=== PATIENT | male | born 1960 | race Caucasian/White ===

== ENCOUNTER 2018-07-15 16:32 | Observation (INO) | payer OTHER ==
[2018-07-15] MEDS ORDERED: IOPAMIDOL (ISOVUE-300) 100 ML BTL ONE (16:44)
[2018-07-15] MEDS ORDERED: BUPIVACAINE 0.25% 30 ML SDV ONE (18:15)
[2018-07-15] MEDS ORDERED: LR 1,000 ML IV ONE (18:15)
[2018-07-15] MEDS ORDERED: EPINEPHrine 1 MG/ML INJ ONE (18:15)
--- NOTE | 2018-07-15 18:20 | PDGENHP ---
History and Physical - Chief Complaint abdominal pain - History of Present Illness Otherwise healthy 58yo M. Pain began last evening, worsened today. Saw Dr Johnson (standing in for his regular PCP Mary). Ordered workup. Ct shows appendicitis. Describes awaking at 0400, tried to shower but the pain persisted. Went to PCP, had workup. In Pre-op describes RLQ pain with rebound, no nausea or vomiting, no fevers or chills. History Information - Allergies/Home Medication List Allergies/Adverse Reactions: Penicillins Allergy (Severe, Verified 01/25/12 17:40) ibuprofen [From Advil] Allergy (Verified 01/25/12 17:40) CATS Allergy (Uncoded 01/25/12 18:24) Home Medications: ESOMEPRAZOLE MAG TRIHYDRATE [NEXIUM] 40 mg PO HS 01/25/12 [Last Taken 01/24/12] Fluticasone/Salmeter 100/50Mcg [Advair 100/50 (RX)] 1 inh IH HS 01/25/12 [Last Taken 01/24/12] Pharmacy Completed 01/25/12 01/25/12 [Last Taken 01/25/12] I have personally reviewed and updated: medical history, social history, surgical history Review of Systems Review of Systems: ROS: 10pt was reviewed & negative except for what was stated in HPI & below Physical Exam Physical Exam: Constitutional: no apparent distress, appears nourished, not in pain Eyes: PERRL, anicteric sclera, EOMI Ears, Nose, Mouth, Throat: moist mucous membranes, hearing normal, ears appear normal, no oral mucosal ulcers Cardiovascular: regular rate and rhythym, no murmur, rub, or gallop, No edema Respiratory: no respiratory distress, no rales or rhonchi, clear to auscultation Gastrointestinal: normoactive bowel sounds, other (TTP in RLQ, no rebound or guarding ) Genitourinary: no bladder fullness, no bladder tenderness Skin: warm, normal color, no rashes or abrasions, no fluctuance, no induration, No mottled Musculoskeletal: full muscle strength, no muscle tenderness, normal joint ROM, no joint effusions Psychiatric: interacting appropriately, not anxious, not encephalopathic, thought process linear Lymph, Heme, Immunologic: no cervical LAD, no supraclavicular LAD Lab Data & Imaging Review Visualized and Interpreted imaging results: Yes Interpretation: CT: acute appendicitis Assessment & Plan Plan: 58yo M c acute appendicitis - to OR for lap appy - RBA discussed. Anticipate one night hospital stay.
[2018-07-15] MEDS ORDERED: MIDAZOLAM 2 MG/2 ML VIAL ONE (18:56)
[2018-07-15] MEDS ORDERED: MIDAZOLAM 2 MG/2 ML VIAL IVP ONE (19:04)
--- NOTE | 2018-07-15 19:04 | PDANEPAE ---
ANE History of Present Illness Laparoscopic appendectomy ANE Past Medical History - Pulmonary History Hx Asthma/Reactive Airway Disease: Yes Hx Oxygen in Use at Home: No Hx Sleep Apnea: No - GI History GERD: mild ANE Review of Systems Review of systems is: negative Review of Systems: - Exercise capacity Exercise capacity: >=4 METS ANE Patient History - Allergies Allergies/Adverse Reactions: Penicillins Allergy (Severe, Verified 01/25/12 17:40) ibuprofen [From Advil] Allergy (Verified 01/25/12 17:40) CATS Allergy (Uncoded 01/25/12 18:24) - Home Medications Home medications: home medication list seen and reviewed Home Medications: ESOMEPRAZOLE MAG TRIHYDRATE [NEXIUM] 40 mg PO HS 01/25/12 [Last Taken 01/24/12] Fluticasone/Salmeter 100/50Mcg [Advair 100/50 (RX)] 1 inh IH HS 01/25/12 [Last Taken 01/24/12] Pharmacy Completed 01/25/12 01/25/12 [Last Taken 01/25/12] - NPO status NPO Since - Liquids (Date): 07/15/18 NPO Since - Liquids (Time): 15:00 NPO Since - Solids (Date): 07/15/18 NPO Since - Solids (Time): 11:00 - Anes Hx Anes Hx: no prior problems - Family Anes Hx Family Anes Hx: none ANE Labs/Vital Signs - Vital Signs Vital Signs: reviewed preoperatively; see RN documention for details Blood Pressure: 144/103 Heart Rate: 90 Respiratory Rate: 16 O2 Sat (%): 97 Height: 177.8 cm Weight: 81.647 kg ANE Physical Exam - Airway Neck exam: FROM Mallampati Score: Class 1 Mouth exam: normal dental/mouth exam - Pulmonary Pulmonary: no respiratory distress - Cardiovascular Cardiovascular: regular rate and rhythym - ASA Status ASA Status: II, E
[2018-07-15] MEDS ORDERED: PROPOFOL 200 MG/20 ML VIAL ONE (19:07)
[2018-07-15] MEDS ORDERED: LIDOCAINE 2% 100 MG/5 ML SYR ONE (19:07)
[2018-07-15] MEDS ORDERED: ONDANSETRON 4 MG/2 ML VIAL ONE (19:07)
[2018-07-15] MEDS ORDERED: ROCURONIUM 50 MG/5 ML VIAL ONE (19:07)
[2018-07-15] MEDS ORDERED: SUGAMMADEX SODIUM 200 MG/2 ML VIAL IVP ONE (19:07)
[2018-07-15] MEDS ORDERED: DEXAMETHASONE 4 MG/ML VIAL ONE (19:07)
[2018-07-15] MEDS ORDERED: fentaNYL 250 MCG/5 ML INJ ONE (19:07)
[2018-07-15] MEDS ORDERED: ACETAMINOPHEN 500 MG TAB PO PRN (19:41)
[2018-07-15] MEDS ORDERED: NALOXONE HCL 0.4 MG/ML INJ IVP PRN (19:41)
[2018-07-15] MEDS ORDERED: MEPERIDINE 25 MG/0.5 ML AMP IVP PRN (19:41)
[2018-07-15] MEDS ORDERED: oxyCODONE IR 5 MG TAB PO PRN ×2 (19:41→19:59)
[2018-07-15] MEDS ORDERED: DEXAMETHASONE 4 MG/ML VIAL IVP PRN (19:41)
[2018-07-15] MEDS ORDERED: HYDROCODONE/APAP 5/325 TAB PO PRN (19:41)
[2018-07-15] MEDS ORDERED: ONDANSETRON 4 MG/2 ML VIAL IVP PRN ×2 (19:41→19:59)
[2018-07-15] MEDS ORDERED: PROMETHAZINE HCL 25 MG/ML INJ IVP PRN (19:41)
[2018-07-15] MEDS ORDERED: HYDROmorphONE/DILAUDID 2 MG/ML INJ IVP PRN (19:41)
[2018-07-15] MEDS ORDERED: fentaNYL 100 MCG/2 ML INJ IVP PRN (19:41)
--- NOTE | 2018-07-15 19:41 | POSTANESTH ---
Post Anesthetic Evaluation Cardiovascular Status: Normal, Stable, Similar to Pre-Op Cond Respiratory Status: Normal, Stable, Similar to Pre-op Cond. Level of Consciousness/Mental Status: Can Participate in Eval, Mildly Sleepy, Arousable Pain Control: Adequate, Prn Tx Ordered Nausea/Vomiting Control: Adequate, Prn Tx Ordered Complications Possibly Related to Anesthesia: None Noted
[2018-07-15] MEDS ORDERED: KETOROLAC 30 MG/1 ML SDV ONE (19:52)
[2018-07-15] MEDS ORDERED: HYDROmorphONE/DILAUDID 1 MG/ML INJ IVP PRN (19:59)
--- NOTE | 2018-07-15 19:59 | POSTOPPROG ---
Post Op Note Date of Operation: 07/15/18 Surgeon: Babar Cuba Anesthesiologist: Raymon Anesthesia: GET(General Endotracheal) Pre-op Diagnosis: appendicitis Post-op Diagnosis: same Procedure: laparoscopic appendectomy Findings: acute, non perforated Inf/Abcess present in the surg proc area at time of surgery?: No EBL: Minimal Specimen(s): appendix
[2018-07-15] MEDS ORDERED: D5W 1/2 NS W/ 20 KCl/L 1,000 ML IV SCH (20:00)
--- NOTE | 2018-07-15 21:12 | GOP ---
DATE OF OPERATION: 07/15/2018 SURGEON: Babar Cuba MD CARROTING MACHINE OFFBEARER: None. ANESTHESIA: General endotracheal. ANESTHESIOLOGIST: Dr. Be Chambers. PREOPERATIVE DIAGNOSIS: .Appendicitis. POSTOPERATIVE DIAGNOSIS: Appendicitis. PROCEDURE PERFORMED: Laparoscopic appendectomy. FINDINGS: Acute, indurated, nonperforated appendicitis. SPECIMENS: Appendix. ESTIMATED BLOOD LOSS: 5 cc. DESCRIPTION OF PROCEDURE: The patient was greeted in the preoperative suite. Once again, risks, bhavik efits, and alternatives were discussed. Consent was signed. He was then brought back to the operati ve suite, placed on the OR table in supine position. After all anesthesia machines including SCDs we re on and functioning, [facility] time-out was performed. After successful induction of general anesthesia, the patient's abdomen was prepped and draped in typical sterile fashion. I en tered the abdomen via an infraumbilical cutdown through his previous scar. Through this, I inserted the Veress needle. I achieved pneumoperitoneum to 15 mmHg CO2, which was well tolerated by the patie nt. Through this, I then inserted a 12 mm Visiport under direct visualization. Once successfully in the abdomen, he had no adhesions from his previous surgery. I successfully inserted 2 additional 5 mm trocars, 1 in the suprapubic, 1 in the left lower quadrant, both under direct visualization. I id entified the appendix by tracing the taeniae inferiorly. It did appear indurated but not perforated. I began my dissection by creating a window at the base of the appendix. Once a window was successf ully created, I amputated the appendix from the cecal base using a single fire of the Endo ANISHA blue l oad stapler. In the same fashion, taking the mesoappendix after successful skeletonization with a wh ite load, the mesoappendix was not hemostatic. I had to use multiple 5 mm hemoclips, after which it was noted to be hemostatic. I irrigated the right lower quadrant, assured hemostasis. I irrigated th e right upper quadrant as well as the pelvis, noting clear effluent in the suction canister. I then once again inspected my staple lines, which were intact and hemostatic. I evacuated my pneumoperiton eum after placing local anesthesia into the port sites. My infraumbilical site was closed with an 0 Vicryl stitch, noting excellent fascial reapproximation. The skin was then closed with Monocryl over which Dermabond was placed. The patient was then extubated in the operative suite and taken to PACU in satisfactory condition. DRAINS: None. COUNTS: All counts were reported as correct x2. /[id number]/MODL
[2018-07-16] MEDS: ACETAMINOPHEN 325 MG TAB PO PRN ×2 (00:12→07:43)
[2018-07-16] MEDS: PANTOPRAZOLE SODIUM 40 MG TAB PO SCH ×2 (07:45→07:51)
--- NOTE | 2018-07-16 07:58 | SOAPPROG ---
SOAP Progress Note Assessment/Plan: Assessment/Plan: 58yo M POD#1 s/p lap appy Path pending Regular diet Return of bowel function May drive if not actively in pain and not taking prescription pain medication Dispo: Discharge home. Follow up in 2 weeks for postop check. Call with worsening symptoms, questions or concerns. Seen c Dr. Cuba S: Feeling well this morning. Eating breakfast. Abdomen is sore but no sharp pain. O: Sitting upright in bed, comfortable, no acute distress Respiratory: No increased work of breathing No peripheral edema Abdomen softly distended, nontender, no rebound or guarding. Incisions clean, dry and intact with no evidence of infection. bowel sounds present 07/16/18 09:11 Objective: Vital Signs Temp Pulse Resp BP Pulse Ox 36.6 C 74 17 94/55 L 97 07/16/18 04:00 07/16/18 04:00 07/16/18 04:00 07/16/18 04:00 07/16/18 04:00 07/15/18 07/16/18 07/17/18 05:59 05:59 05:59 Intake Total 975 Output Total 10 Balance 965 ICD10 Worksheet Patient Problems: Problems Problem Status Onset Appendicitis Acute - ICD10 Problem Qualifiers (1) Appendicitis Qualifiers: Appendicitis type: acute appendicitis
[2018-07-16 08:58] VITALS: BP 128/97
--- NOTE | 2018-07-16 09:34 | GDS ---
ADMITTING DIAGNOSIS: Acute appendicitis. SECONDARY DIAGNOSES: Gastroesophageal reflux disease. REASON FOR ADMISSION: A 58-year-old man who developed abdominal pain and was admitted for further wo rkup, surgical intervention, pain control, and observation. HOSPITAL COURSE: He presented to the emergency room complaining of abdominal pain. CT scan showed a cute appendicitis. He was taken to the operating room by Dr. Babar Cuba on 07/15/2018, for lapa roscopic appendectomy. At the time of dictation, the pathology is pending. On postoperative day #1, he had full return of bowel function, pain was controlled with oral pain medication, tolerating regu lar diet, and was ready for discharge home. DISCHARGE CONDITION: Being discharged home in stable condition, pain controlled, tolerating regular diet, ambulating independently. DISCHARGE MEDICATIONS: He was sent home with a prescription for oxycodone IR and Tylenol. Instructe d to resume home medications. Please see EMR for further details. DISCHARGE INSTRUCTIONS AND FOLLOWUP: He will follow up with Dr. Cuba in 2 weeks for routine po stoperative check. No heavy lifting, pushing, or pulling greater than 15 pounds for 2 weeks. Okay t o shower. Call with any worsening symptoms, questions or concerns. /[id number]/MODL
[2018-07-16] MEDS ORDERED: FLUTICASONE/SALMETER 100/50MCG DISKUS IH SCH (21:00)
[2018-07-16] MEDS ORDERED: ALLOPURINOL 300 MG TAB PO SCH (21:00)
== END 2018-07-16 10:50 | disposition home or self-care (01) ==
LOC: FIMAGING 16:32 → F3E 17:57
PROVIDERS: ADMIT Surgery; ATTEND Surgery
PROC: 0DTJ8ZZ Resection of Appendix, Via Natural or Artificial Opening Endoscopic (ICD-10-PCS; principal; 2018-07-15 19:00)
DX: K35.80 Unspecified acute appendicitis (principal); K21.9 Gastro-esophageal reflux disease without esophagitis
CPT/HCPCS: 44970; 74177; G0378; J0171; J1100; J1885; J1956; J2001; J2250; J2405; J2704; J3010; Q9967